=== PATIENT | female | born 1945 | race Caucasian/White ===

== ENCOUNTER 2018-01-22 15:40 | Emergency (ER) | payer OTHER, MEDICAID ==
--- NOTE | 2018-01-22 16:58 | EDPHY ---
H & P Time Seen by Provider: 01/22/18 15:51 HPI/ROS: This patient is brought in by her daughter for evaluation of urinary symptoms and bruising in her inner thighs. Patient's daughter provides a history as the patient has Alzheimer's dementia to the limits her capacity to provide details in history. With daughter notes foul-smelling urine over the past few days with history of frequent UTIs in the past that concerns for potential UTI currently. Also, the patient is noted to have some bruising in her inner thighs by her [employer] day program. Due to the [employer] policy this mandated evaluation to rule out elder abuse. The patient lives with her daughter who seems very conscientious about care of her mother and aware of all the details of her medical history. The patient's daughter (named Benito Thompson) attributes this bruising to therapeutic INR of 2.9 on Coumadin with a shower aid that has been applying nystatin cream to inner thighs while the patient is standing. This requires more pressure on the inner thighs then other techniques such as a seated position. Miss walters chiquita sumner explain this to the shower aid and that 8 is no longer applying the nystatin while the patient is standing. Miss Thompson, concerned about her mother's care stood outside of the door at times while that same shower 8 was taking care of her mother noted that the aid spoke kindly to her mother and seem to take care. She feels that the bruising was innocent of any intention wrong doing or attempted harm. She also does not think there is any kind of inappropriate sexual advances toward her mother. ROS: No fevers. No other constitutional symptoms HEENT: No complaints. No recent URI symptoms Neuro: No headache. Pulmonary: No cough further complaints GI: No complaints hematologic: No bloody noses or other bruising lately. 7 point ROS is otherwise negative Past Medical/Surgical History: DVT/P Dementia Smoking Status: Never smoked Physical Exam: General Appearance: Pleasant 73-year-old female Alert, no distress. Eyes: Pupils equal and round no pallor or injection. ENT, Mouth: Mucous membranes moist. Atraumatic Respiratory: There are no retractions, lungs are clear to auscultation. Cardiovascular: Regular rate and rhythm. No murmur or rub Gastrointestinal: Abdomen is soft and nontender, no masses, bowel sounds normal. Neurological: Patient is alert and answer simple questions with yes and no responses. She has no focal neuro deficits on exam. Skin: Warm and dry, no rashes. Isolated contusions to inner thighs 5 cm or so below the inguinal region consistent with finger molina from applying nystatin as described but the patient's daughter. These are superficial in appear subacute : External genitalia atraumatic. No bruising. No suprapubic tenderness is appreciated. No flank tenderness/CVA tenderness Musculoskeletal: Neck is supple nontender. Extremities are symmetrical, full range of motion. Psychiatric: Flat affect. Otherwise normal DIFFERENTIAL DIAGNOSIS: After history and physical exam differential diagnosis was considered for cystitis, pyelonephritis, inadvertent contusions from nystatin application while standing in presence of coagulopathy from therapeutic Coumadin affect. Doubt any physical abuse in this case Constitutional: Initial Vital Signs Temperature (C) 36.9 C 01/22/18 16:08 Heart Rate 99 01/22/18 16:08 Respiratory Rate 22 H 01/22/18 16:08 Blood Pressure 121/73 H 01/22/18 16:08 O2 Sat (%) 91 L 01/22/18 16:08 O2 Delivery Mode Room Air Allergies/Adverse Reactions: bupropion [From Wellbutrin] Allergy (Verified 01/22/18 16:07) codeine Allergy (Verified 01/22/18 16:06) Penicillins Allergy (Verified 01/22/18 16:06) Home Medications: Medication Instructions Recorded metFORMIN HCL [Glucophage 500 mg 500 mg PO BIDMEAL 12/22/12 (RX)] Cephalexin [Keflex (*)] 500 mg PO TID #21 cap 01/22/18 Coumadin 01/22/18 MDM/Departure - [facility] ED Course/Re-evaluation: Discussion: This patient's daughter seems very conscientious in a care of her mother and aware of all of her care details. She provides a forthright history that sounds consistent with the patient's exam. I did external genitalia exam but did not feel compelled to pursue a full pelvic exam on this patient given very low likelihood of inappropriate sexual contact based on what the daughter is explaining. Review of her UA reveals pyuria and bacteria consistent with UTI. I counseled patient's daughter regarding this. Upper post Macrobid but her last UTI did respond Macrobid sole use Keflex. While she has penicillin listed as an allergen, she has tolerated Keflex without allergic symptoms in the past. - Depart Disposition: Home, Routine, Self-Care Clinical Impression: Cystitis Superficial bruising of thigh Qualifiers: Encounter type: initial encounter Laterality: unspecified laterality Qualified Code(s): S70.10XA - Contusion of unspecified thigh, initial encounter Condition: Good Instructions: Urinary Tract Infection in Women (ED), Contusion in Adults (ED) Additional Instructions: Diagnosis: Superficial bruising of both thighs 2. Bladder infection You're mother's bruises are consistent with her therapeutic Coumadin and the nystatin application to the inner thighs described. Plan: Continue the Coumadin plan to recheck INR in 1 week Start keflex antibiotic for bladder infection Drink plenty fluids Return for any significant worsening despite plan. Prescriptions: Cephalexin [Keflex (*)] 500 mg PO TID #21 cap Referrals: Charlie Joshi MD [Primary Care Provider] - As per Instructions
[2018-01-22 17:14] VITALS: BP 127/86; PULSE 95; RESP 20; TEMP 98.2; O2SAT 92
== END 2018-01-22 17:15 | disposition home or self-care (01) ==
LOC: CED 15:40
DX: S70.11XA Contusion of right thigh, initial encounter (principal); S70.12XA Contusion of left thigh, initial encounter; N30.90 Cystitis, unspecified without hematuria; B96.20 Unspecified Escherichia coli [E. coli] as the cause of diseases classified elsewhere; Z79.01 Long term (current) use of anticoagulants; X58.XXXA Exposure to other specified factors, initial encounter
CPT/HCPCS: 81003-PO; 81015-PO